=== PATIENT | female | born 1955 | race Caucasian/White ===

== ENCOUNTER → 2016-03-10 | Outpatient (CLI) | payer OTHER ==
[2016-02-18 14:00] VITALS: BP 101/46
[~2016-03-10] MED LIST: AMLO1CAP PO; ASPI-482 PO; ASPI1TAB30 PO; ASPI1TAB58 PO; ATOR40TA PO; CLOP75TA PO; LORA-794 PO; OMEG-32 PO; PRAS10TA4 PO; RANI150C PO
--- NOTE | 2016-03-10 10:33 | RAD ---
APPROVED REPORT Patient Location: OUT-PATIENT Indications PAD VELOCITY AND DOPPLER WAVEFORM ANALYSIS RIGHT cm/secWaveformSeverity LEFT c m/secWaveformSeverity Ext Iliac Art. 89.0MonophasicExt Iliac Art. 214.0Biphasic pCFA 81.0MonophasicpCFA 147.0Biphasic dCFA 65.0MonophasicdCFA 135.0Biphasic Prof Fem Art. 42.0MonophasicProf Fem Art. 167.0Biphasic Fem Art Prox. 96.0MonophasicFem Art Prox. 145.0Biphasic Fem Art Mid. 77.0MonophasicFem Art Mid. 150.0Biphasic Fem Art Dist. 89.0MonophasicFem Art Dist. 84.0Biphasic Pop Art(AK) 43.0MonophasicPop Art(AK) 88.0Biphasic Pop Art(BK) 52.0MonophasicPop Art(BK) 98.0Biphasic JEWEL LATHE OPERATOR Prox. 32.0MonophasicPTA Prox. 91.0Biphasic JEWEL LATHE OPERATOR Dist. 30.0MonophasicPTA Dist. 75.0Biphasic Per Art Prox. Per Art Prox. 77.0Biphasic Per Art Mid. 35.0MonophasicPer Art Mid. KYARA Prox. 26.0MonophasicATA Prox. 83.0Triphasic Findings Grayscale images of the bilateral lower extremity arterial vessels revealed mild to moderate diffuse plaque and a patent left SFA stent. On the right the velocity profiles are consistent with monophasic waveforms suggestive of distal smal l vessel diffuse disease. No significant velocity acceleration or deceleration is noted from the com mon femoral artery to the ankle vessels. Overall, no high-grade focal stenosis identified. On the left there are increased velocities in the left external iliac artery but no clear high grade stenosis is identified. Velocity waveforms are mostly biphasic in the left leg arterial system exten ding to the ankle. A patent left SFA stent is noted without any evidence of stenosis. Critical Notification Critical Value: No <Conclusion> 1. No significant high-grade focal stenosis identified in the bilateral lower extremity arterial vess els. Incidental note is made of accelerated velocities in the external iliac artery without any high -grade stenosis. 2. Patent left SFA stent.
== END | disposition home or self-care (01) ==
LOC: US 07:39
PROVIDERS: ATTEND Internal Medicine Cardiovascular Disease
DX: I65.23 Occlusion and stenosis of bilateral carotid arteries (principal)
CPT/HCPCS: 93925

== ENCOUNTER → 2016-06-27 | Outpatient (CLI) | payer OTHER ==
[2016-02-18 14:00] VITALS: BP 101/46
[~2016-06-27] MED LIST changes: -PRAS10TA4 PO; +PRAS10TA9 PO; +REGADENOSON 0.4 MG/5 ML DISP.SYRIN. IV ONE
--- NOTE | 2016-06-27 13:55 | RAD ---
APPROVED REPORT Test Type: Pharmacological Stress Nurse/Tech: Viola Shaikh R.N. Test Indications: peripheral vascular disease Cardiac History: Hypertension Medications: See Electronic Medical Record Medical History: See Electronic Medical Record Resting ECG: Sinus jamil Resting Heart Rate: 58 bpm Resting Blood Pressure: 128/40mmHg Pretest Chest Pain: No chest pain Nurse/Tech Notes S1S2, lungs sound clear Consent: The procedure was explained to the patient in lay terms. Informed consent was witnessed. Po eout was entered into [employer]. History and Stress Test performed by Viola Shaikh R.N. Pharm. Details Pharmacologic stress testing was performed using 0.4mg per 5ml of regadenoson given intravenously ove r 7-10 seconds. Stress Symptoms No chest pain or symptoms. POST EXERCISE Reason for Termination: Infusion complete Max HR: 114 bpm Max Blood Pressure: 132/72mmHg Blood Pressure response to exercise: Normal blood pressure response during stress. Chest Pain: No. Arrhythmia: No. ST Change: No. INTERPRETATION Stress EKG Conclusion: No evidence of stress induced EKG changes. Imaging Protocol IMAGE PROTOCOL: Rest Tc-99m/stress Tc-99m 1 day Rest: Stress: Viability: Radiopharm.Tc99m [id number] Sestamibi Dose12.3mCi 33.2mCi Duration 15min. 10min. Img Date 06/27/2016 06/27/2016 Inj-Img Vtfk87vxh. 60min. Rest Admin Site:IV - Right AntecubitalAdministrator:BRANDON Meraz Stress Admin Site: IV - Right AntecubitalAdministrator: BRANDON Meraz STRESS DATA End Diast. Vol.55.0mlAv. Heart Rate63.0bpm End Syst. Vol.3.0mlCO Index BSA0.0L/min Myocardial Mttf162.0gEject. Vzpcvgkq83.0% Stress Rates Pk. Fill Rate2.35EDV/secLVtime Pk. Fill 161.84msec Pk. Empty Rate3.97ESV/secLVtime Pk. Ovigo075.64msec 03/04 Pk. Fill1.39EDV/sec Stress Scores Regional WT0.00Summed WT0.00 Regional WM0.00Summed WM0.00 The rest and stress images show normal perfusion, normal contraction and thickening. LV Perf. Quant 17 Seg. SSS0.00 17 Seg. SRS0.00 17 Seg. SDS0.00 Stress Defect Extent (% LAD)0.00Rest Defect Extent (% LAD)0.00Rev. Defect Extent (% LAD)0.00 Stress Defect Extent (% LCX) 0.00Rest Defect Extent (% LCX)0.00Rev. Defect Extent (% LCX)0.00 Stress Defect Extent (% RCA)0.00Rest Defect Extent (% RCA)0.00Rev. Defect Extent (% RCA)0.00 Stress Defect Extent (% KILEY)0.00Rest Defect Extent (% KILEY)0.00Rev. Defect Extent (% KILEY)0.00 Other Information Quality:Good Risk Assessment: Low Risk Conclusion 1. No evidence of stress induced EKG changes. 2. Normal myocardial perfusion at stress/rest. 3. Low risk study. EF > 70%
--- NOTE | 2016-06-27 18:23 | CARD ---
APPROVED REPORT EXAM: Two-dimensional and M-mode echocardiogram with Doppler and color Doppler. Other Information Quality : Good Rhythm : NSR INDICATION Hypertension/HCVD 2D DIMENSIONS RVDd2.3 (2.9-3.5cm)Left Atrium(2D)3.5 (1.6-4.0cm) IVSd1.1 (0.7-1.1cm)Aortic Root(2D)2.6 (2.0-3.7cm) LVDd3.8 (3.9-5.9cm)LVOT Diameter2.0 (1.8-2.4cm) PWd1.1 (0.7-1.1cm)LVDs2.7 (2.5-4.0cm) FS (%) 28.7 %SV35.0 ml LVEF(%)56.0 (>50%) Aortic Valve AoV Peak Joni.162.2cm/sAoV VTI35.4cm AO Peak GR.10.5mmHgLVOT Peak Joni.144.0cm/s AO Mean GR.5mmHgAVA (VMAX)2.76cm2 YADY (VTI)2.80cm2 Mitral Valve MV E Xzntjcqe94.4cm/sMV DECEL AJGO110in MV A Vszeuigc997.9cm/sE/A Ratio0.6 Tricuspid Valve TR P. Ozndkbnl984my/sRAP ANVAMWCL2lvOq TR Peak Gr.33pxCaZVMA10lpZl Pulmonary Vein S1 Elopdsmq45.4cm/sD2 Yprfopbu70.4cm/s PVa hzowkggj51gted LEFT VENTRICLE The left ventricle is normal size. There is normal left ventricular wall thickness. The left ventricu lar systolic function is normal and the ejection fraction is within normal range. The Ejection Fracti on is 55-60%. There is normal LV segmental wall motion. Transmitral Doppler flow pattern is Grade I-a bnormal relaxation pattern. RIGHT VENTRICLE The right ventricle is normal size. The right ventricular systolic function is normal. ATRIA The left atrium size is normal. The right atrium size is normal. The interatrial septum is intact wit h no evidence for an atrial septal defect or patent foramen ovale as noted on 2-D or Doppler imaging. AORTIC VALVE The aortic valve is calcified but opens well. Doppler and Color Flow revealed no significant aortic r egurgitation. There is no significant aortic valvular stenosis. MITRAL VALVE The mitral valve is calcified but opens well. There is no evidence of mitral valve prolapse. There is no mitral valve stenosis. Doppler and Color Flow revealed no mitral valve regurgitation noted. TRICUSPID VALVE The tricuspid valve is normal in structure and function. Doppler and Color Flow revealed trace tricus pid regurgitation. The PA pressure was estimated at 29 mmHg. PULMONIC VALVE Doppler and Color Flow revealed no pulmonic valvular regurgitation. There is no pulmonic valvular julio nosis. GREAT VESSELS The aortic root is normal in size. The ascending aorta is normal in size. The IVC is normal in size a nd collapses >50% with inspiration. PERICARDIAL EFFUSION There is no evidence of significant pericardial effusion. Critical Notification Critical Value: No <Conclusion> The left ventricular systolic function is normal and the ejection fraction is within normal range. Th e Ejection Fraction is 55-60%. There is normal LV segmental wall motion.
== END | disposition home or self-care (01) ==
LOC: NM 06:47
PROVIDERS: ATTEND Internal Medicine Cardiovascular Disease
DX: I10 Essential (primary) hypertension (principal); I73.9 Peripheral vascular disease, unspecified; I07.1 Rheumatic tricuspid insufficiency
CPT/HCPCS: 78452; 93017; 93306; 96374; 96375; 96376; A9500; J2785

== ENCOUNTER → 2016-07-17 | Outpatient (CLI) | payer OTHER ==
[2016-02-18 14:00] VITALS: BP 101/46
[~2016-07-17] MED LIST changes: -REGADENOSON 0.4 MG/5 ML DISP.SYRIN. IV ONE
--- NOTE | 2016-07-17 13:27 | RAD ---
Examination: Ultrasound left lower extremity venous duplex History: History of left lateral calf pain Comparison: None available Technique: Grayscale, color Doppler 2-D, spectral waveform analysis of the left lower extremity venous system were performed Findings: The visualized common femoral vein, superficial femoral vein, popliteal vein demonstrate normal compression augmentation of flow. The visualized deep calf veins are patent. There is some echogenicity probable thrombus identified in the superficial vein of the left calf likely superficial thrombophlebitis. Impression 1. No evidence of deep venous thrombosis. 2. Probable superficial thrombophlebitis left lateral calf vein.
== END | disposition home or self-care (01) ==
LOC: US 11:57
PROVIDERS: ATTEND Family Medicine
DX: M79.605 Pain in left leg (principal)
CPT/HCPCS: 93971

== ENCOUNTER → 2016-09-11 | Outpatient (CLI) | payer OTHER ==
[2016-02-18 14:00] VITALS: BP 101/46
--- NOTE | 2016-09-11 16:57 | RAD ---
MRI of the lumbar spine without contrast 09/11/2016 CLINICAL HISTORY: Low back pain with difficulty walking for one year. TECHNIQUE: Unenhanced T1-weighted and T2-weighted sagittal and axial and inversion recovery sagittal images of the lumbar spine were obtained. FINDINGS: Minimal S-shaped curvature of the thoracolumbar spine is seen. Degenerative signal changes are seen involving all of the disks of the lumbar spine. Degenerative signal changes are seen within the marrow surrounding these discs. The conus medullaris is within normal limits in morphology, position, and signal characteristics. The L1-2 disc space is within normal limits. At the L2-3 disc space there is a mild generalized disc bulge. Superimposed on this disc bulge is a right paracentral/lateral focal disc protrusion. This measures 5 mm in AP diameter. Degenerative changes are seen involving the facet joints bilaterally. There is mild ligamentum flavum hypertrophy bilaterally. These findings when combined do not result in significant central spinal canal or neural foraminal stenosis. At the L3-4 disc space there is a mild generalized disc bulge. Degenerative changes are seen involving the facet joints bilaterally. There is mild ligamentum flavum hypertrophy bilaterally. These findings do not result in significant central spinal canal or neural foraminal stenosis. At the L4-5 and L5-S1 disc spaces there are minimal generalized disc bulges. Degenerative changes are seen involving the facet joints bilaterally. These findings do not result in significant central spinal canal or neural foraminal stenosis. IMPRESSION: The changes of degenerative disc disease are seen involving the lumbar spine. These findings do not result in significant central spinal canal or neural foraminal stenosis at any level. Electronically signed by: Ernesto French MD (09/11/2016 4:54 PM) [facility]
== END | disposition home or self-care (01) ==
LOC: MRI 14:34
PROVIDERS: ATTEND Family Medicine
DX: M51.36 Other intervertebral disc degeneration, lumbar region (principal)
CPT/HCPCS: 72148

== ENCOUNTER → 2016-10-16 | Outpatient (CLI) | payer OTHER ==
[2016-02-18 14:00] VITALS: BP 101/46
--- NOTE | 2016-10-16 16:13 | RAD ---
Cervical spine radiograph 10/16/2016 at 1425 hours Right shoulder radiograph Indication: Right shoulder pain when turning neck side to side. Comparison: Cervical spine MR 08/22/2015 Technique: AP, lateral, odontoid views and bilateral oblique views of the cervical spine are provided. 3 views of the right shoulder are provided. Cervical spine: Cervical spine is visualized from the craniocervical junction through the cervicothoracic junction. There is reversal of the normal cervical lordosis focal kyphosis at C4-C5. There is minimal retrolisthesis of C5 on C6. There is disc space narrowing with endplate sclerosis at C4-C5 and C5-C6 and C6-C7. Posterior disc osteophyte complex noted at C4-C5 and C5-C6 resulting in at least mild narrowing of the spinal canal. The C1 lateral masses articulate properly with the C2 vertebral body. There is mild left C4-C5 osseous neural foraminal stenosis. There is mild multilevel uncovertebral joint arthropathy. Right shoulder: There is no acute fracture or dislocation. Mild osteoarthrosis of the acromioclavicular joint. No significant soft tissue abnormality. Atherosclerotic ulceration of the thoracic aorta noted. Impression: 1. Mild degenerative changes of the cervical spine with likely degenerative retrolisthesis of C5 on C6, stable dating back to 08/22/2015. No acute fracture is identified. 2. No acute fracture or dislocation involving the right glenohumeral and acromioclavicular joints.
== END | disposition home or self-care (01) ==
LOC: RAD 14:09
PROVIDERS: ATTEND Family Medicine
DX: M47.22 Other spondylosis with radiculopathy, cervical region (principal); M25.511 Pain in right shoulder
CPT/HCPCS: 72050; 73030

== ENCOUNTER → 2016-11-21 | Outpatient (CLI) | payer OTHER ==
[2016-02-18 14:00] VITALS: BP 101/46
[~2016-11-21] MED LIST changes: -ASPI1TAB30 PO; +ASPI1TAB31 PO
--- NOTE | 2016-11-21 12:56 | RAD ---
Indication low back pain. AP oblique and lateral views of the lumbar spine were obtained as well as a coned view targeted to the lumbosacral junction. There is probable bony demineralization. Significant degenerative changes are not seen. Vertebral height alignment and disc spaces are unremarkable. No acute finding is seen. Vascular stent in the pelvis is noted. IMPRESSION: Suspect bony demineralization. No acute or significant finding seen involving the lumbar spine
== END | disposition home or self-care (01) ==
LOC: RAD 12:02
PROVIDERS: ATTEND Family Medicine
DX: M54.40 Lumbago with sciatica, unspecified side (principal)
CPT/HCPCS: 72110

== ENCOUNTER → 2016-12-05 | Outpatient (CLI) | payer OTHER ==
[2016-02-18 14:00] VITALS: BP 101/46
[~2016-12-05] MED LIST changes: +ROPI0.5T PO; +TIZA2CAP PO
--- NOTE | 2016-12-05 12:56 | PAIN ---
DATE OF SERVICE: 12/05/2016 DIAGNOSES: 1. Lumbar radiculopathy with lumbar degenerative disk disease. 2. Cervical radiculopathy with cervical degenerative disk disease. HISTORY OF PRESENT ILLNESS: The patient is a 61-year-old female who returns for followup status post cervical epidural steroid injections x 2 and lumbar epidural steroid injection x 1, last seen 11/09/2015. The patient reports she did very well with this with about a 75% improvement overall, but the pain is returning now in the low back and bilateral lower extremities, right greater than left with radiating pains in the low back into the posterior gluteus, posterior thighs, posterior calves, again worse on the right side than the left, but present bilaterally. The patient reports it is worse with standing, walking, changing positions, better with sitting down or lying down but awakens her from sleep occasionally, not every night. She sleeps about 5 hours at a time, she needs to reposition and get back to sleep if this does awaken her. The patient also has some restless legs syndrome and has been taking some medication for that, that also wakes her up at night. The patient reports the pain is an 8 on a scale of 10 at its worst, a 5 at its average and about a 4 at its least. The patient reports it is burning, cramping, stabbing, shooting, sharp and aching pain that can be on and off, but is becoming more present and more consistent with time. The patient reports no new motor or sensory deficits, no new bowel or bladder incontinence or other complaints, but still significant pain radiating to the right leg greater than left as noted and worse with activity. PAST MEDICAL HISTORY: Significant for cigarette smoking, arthritis, headaches, hearing loss, hypertension. PREVIOUS SURGERIES: Include appendectomy and hysterectomy. CURRENT MEDICATIONS: Include amlodipine, Zantac and complete list is updated on the patient's chart. ALLERGIES: The patient has no known drug allergies. FAMILY HISTORY: Significant for cancers. SOCIAL HISTORY: The patient still smokes 1 pack of cigarettes a day, has for about 46 years. Drinks 2 alcoholic beverages a day as well. 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 REVIEW OF SYSTEMS: The patient's review of systems is positive for those items mentioned in history of present illness. All systems reviewed and otherwise negative. It is complete, full and well documented on the patient's chart. PHYSICAL EXAMINATION: VITAL SIGNS: Today, the patient's blood pressure is 126/59, pulse 65, respirations 16, temperature 98.3 degrees Fahrenheit, height is 5 feet 4 inches, weight is 125 pounds. GENERAL: The patient is awake, alert, oriented, appropriate, very pleasant demeanor. HEENT: Head shows normocephalic, atraumatic. Extraocular movements are intact, symmetrical. Oral cavity, mucous membranes are moist and pink. Dentition is intact. NECK: Shows anterior throat supple without palpable lymphadenopathy noted. Swallow reflex is symmetrical. CHEST: Shows normal on inspection. Breath sounds are clear bilaterally. HEART: Shows S1 and S2 clear. No murmurs auscultated. ABDOMEN: Soft, nontender, nondistended. No palpable organomegaly is noted. No rebound or guarding demonstrated. BACK: Shows spine grossly midline, slight flattening of lumbar lordotic curvature and cervical lordotic curvature. Paraspinous musculature in the cervical distribution is mildly tender but diffusely bilaterally in the superior, medial and lateral trapezius as well as the inferior, posterior cervical paraspinous musculature. Full rotational motion is demonstrated the right and left as well as extension and flexion of the cervical spine without difficulty. BACK: Low back shows symmetrical on inspection with musculature with palpation shows some mild tenderness to moderate tenderness in the lower lumbar distribution, but only diffusely bilaterally in the paraspinous muscles. No tenderness over the spinous processes, sacrum or sacroiliac regions. The patient has good rotational motion of lumbar spine, both laterally as well as extension and flexion without difficulty. LOWER EXTREMITIES: Show deep tendon reflexes at 1+ patellar and tendo calcaneus tendons. Motor exam is strong, however, with dorsiflexion, extension, quadriceps and hamstring flexion rated at 5/5 and equal. Peripheral pulses are 1+ posterior tibial and dorsalis pedis pulses. Straight leg raise noted to be positive bilaterally about 40-45 degrees, decreased on the left with knee flexion, but not decreased on the right with knee flexion. Gaenslen's and Oliver's maneuvers are negative bilaterally. Options were discussed with the patient and the patient's old chart was reviewed as her current medication regimen updated. Current review of systems is updated today as well. We will preauthorize the patient for a lumbar epidural steroid injection as she has done very well with these in the past with returning pains very similar to that of about 1 year ago with radicular pain at the L4 and L5 levels in the dermatomes of the lower extremity, again right greater than left. The patient was encouraged to maintain her stretching and strengthening exercises as she is doing these daily, also trying to walk as best she can. The patient continues to work and is on her feet most of her day. We discussed possible difference in supportive shoes as well as cushioned of mats that she may have available at work as well and she will look into this. The patient will follow up as scheduled and we will plan on lumbar epidural steroid injection at that time. LENA WILLIS MD DR: ESTHELA/geeta JOB#: [id number] / [id number]
== END | disposition home or self-care (01) ==
LOC: PNCL 10:06
PROVIDERS: ATTEND Anesthesiology
DX: M51.16 Intervertebral disc disorders with radiculopathy, lumbar region (principal); M50.10 Cervical disc disorder with radiculopathy, unspecified cervical region; G25.81 Restless legs syndrome; I10 Essential (primary) hypertension; F17.210 Nicotine dependence, cigarettes, uncomplicated
CPT/HCPCS: 99212

== ENCOUNTER → 2016-12-30 | Outpatient (CLI) | payer OTHER ==
[2016-02-18 14:00] VITALS: BP 101/46
[~2016-12-30] MED LIST changes: +IOHEXOL 180 MG/ML 10 ML VIAL. ONE; +methylPREDNISolone ACETATE 40 MG/ML VIAL. ONE; +methylPREDNISolone ACETATE 80 MG/ML VIAL. ONE
--- NOTE | 2016-12-30 12:19 | PAIN ---
DATE OF SERVICE: 12/30/2016 DIAGNOSES: 1. Lumbar radiculopathy with lumbar degenerative disk disease. 2. Cervical radiculopathy with cervical degenerative disk disease. HISTORY OF PRESENT ILLNESS: The patient is a 61-year-old female who returns for followup status post evaluation and preauthorization for lumbar epidural steroid injection. Also, the patient has been holding her Effient now for 7 days and returns reporting a significant pain again in the low back, bilateral lower extremities, right slightly greater than left, but present in both the legs. The patient reports a 5 on a scale of 10 at its worst, 4 on average, 3 on a scale of 10 at its least and 3 today. The patient reports it is tingling, burning, cramping, stabbing, shooting, dull, sharp, aching and becoming more constant pain in the back and legs. The patient reports no new motor or sensory deficits, no new bowel or bladder incontinence or other complaints. PHYSICAL EXAMINATION: VITAL SIGNS: The patient's blood pressure 117/60, pulse 72, respirations 18, temperature 97.8 degrees Fahrenheit, height is 5 feet 4 inches, weight is 130 pounds. GENERAL: The patient is awake, alert, oriented, appropriate, very pleasant demeanor. HEENT: Head shows normocephalic, atraumatic. Extraocular movements are intact and symmetrical. Oral cavity, mucous membranes are moist and pink. Dentition is intact. NECK: Shows anterior throat supple without palpable lymphadenopathy noted. Swallow reflex is symmetrical. CHEST: Shows normal on inspection. Breath sounds are clear to auscultation bilaterally. HEART: Shows S1 and S2 clear. ABDOMEN: Soft, nontender, nondistended. No palpable organomegaly. There is no rebound or guarding demonstrated. BACK: Shows spine grossly midline. Lumbar paraspinous musculature shows some moderate tenderness to palpation, but is symmetrical and normal lumbar lordotic curvature with palpation shows some moderate tenderness diffusely bilaterally in the lower lumbar distribution, but without radiation. No tenderness over the sacrum or sacroiliac regions. The patient shows good rotational motion of the lumbar spine, both laterally as well as extension and flexion without difficulty. LOWER EXTREMITIES: Showed deep tendon reflexes 1+ in the patellar and tendo calcaneus tendons. Motor exam is strong with 5/5 dorsiflexion, extension, quadriceps, hamstrings bilaterally. Peripheral pulses are 1+ posterior tibial. No peripheral edema is noted. Options were discussed with the patient and the patient's old chart was reviewed as her current medication regimen updated. Current review of systems updated today as well. We will proceed with a first in the series lumbar epidural steroid injection in translaminar approach. Risks were again discussed including, but not limited to bleeding, infection, possibility of epidural hematoma, subsequent neurologic compromise, dural punctures, headaches, spinal cord and/or nerve damage, side effects of steroid medication and poor results regarding pain control. The patient understands and wishes to proceed. The patient will return to clinic in approximately 2 weeks for followup, was counseled on return appointment, activity level and side effects to be aware of. DIAGNOSIS: Lumbar radiculopathy with lumbar degenerative disk disease. PROCEDURE: Lumbar epidural steroid injection in translaminar approach L4-L5 level using C-arm fluoroscopic guidance using sterile prep and drape using local anesthetic. MEDICATIONS INJECTED: A total of 120 mg Depo-Medrol plus 10 mL preservative-free normal saline and 2 mL of Isovue for contrast. CONDITION ON DISCHARGE: Stable. The patient tolerated the procedure well, had no complications. LENA WILLIS MD DR: ESTHELA/geeta JOB#: [id number] / [id number]
== END | disposition home or self-care (01) ==
LOC: PNCL 09:34
PROVIDERS: ATTEND Anesthesiology
DX: M51.16 Intervertebral disc disorders with radiculopathy, lumbar region (principal); M50.10 Cervical disc disorder with radiculopathy, unspecified cervical region; G25.81 Restless legs syndrome; I10 Essential (primary) hypertension; F17.210 Nicotine dependence, cigarettes, uncomplicated
CPT/HCPCS: 62323; J1030; J1040

== ENCOUNTER 2017-08-02 21:39 | Inpatient (IN) | payer OTHER ==
[2017-08-02 22:09] LABS: BASO # 0.2 x10^3/uL (0.0-0.2); BASO % 1 % (0-3); EOS # 0.2 x10^3/uL (0.0-0.7); EOS % 1 % (0-3); HEMATOCRIT 36.3 % (36.0-47.0); HEMOGLOBIN 11.6 g/dL (12.0-15.5); LYMPH # 3.3 x10^3/uL (1.0-4.8); LYMPH % 12 % (24-48); MEAN CORPUSCULAR HEMOGLOBIN 29 pg (25-35); MEAN CORPUSCULAR HGB CONC 32 g/dL (31-37); MEAN CORPUSCULAR VOLUME 90 fL (79-100); MONO # 0.2 x10^3/uL (0.0-1.1); MONO % 1 % (0-9); NEUT # 23.4 x10^3uL (1.8-7.7); NEUT % 86 % (31-73); PLATELET COUNT 481 x10^3/uL (140-400); RED BLOOD COUNT 4.02 x10^6/uL (3.50-5.40); WHITE BLOOD COUNT 27.3 x10^3/uL (4.0-11.0)
[2017-08-02] MEDS: IV NORMAL SALINE 1000ML BAG 1,000 ML IV (22:10)
[2017-08-02 22:15] LABS: ADD MAN DIFF? YES
[2017-08-02 22:18] LABS: INR 1.2 (0.8-1.1); PROTHROMBIN TIME PATIENT 14.7 SEC (11.7-14.0)
[2017-08-02 22:20] LABS: ANION GAP 24 (6-14); BLOOD UREA NITROGEN 53 mg/dL (7-20); BUN/CREATININE RATIO 31 (6-20); CALCIUM 8.6 mg/dL (8.5-10.1); CARBON DIOXIDE 15 mmol/L (21-32); CHLORIDE 104 mmol/L (98-107); CREATININE 1.7 mg/dL (0.6-1.0); GFR 30.4; GLUCOSE 247 mg/dL (70-99); POTASSIUM 3.5 mmol/L (3.5-5.1); SODIUM 143 mmol/L (136-145)
[2017-08-02 22:26] LABS: ALBUMIN 3.7 g/dL (3.4-5.0); ALBUMIN/GLOBULIN RATIO 1.2 (1.0-1.7); ALK PHOS 123 U/L (46-116); ALT (SGPT) 27 U/L (14-59); AST (SGOT) 28 U/L (15-37); LIPASE 475 U/L (73-393); TOTAL BILIRUBIN 0.5 mg/dL (0.2-1.0); TOTAL PROTEIN 6.9 g/dL (6.4-8.2)
[2017-08-02 22:29] LABS: % BANDS 9 % (0-9); % LYMPHS 10 % (24-48); % MONOS 1 % (0-10); % SEGS 80 % (35-66)
[2017-08-02 22:32] LABS: PLT ESTIMATE INCREASED (ADEQUATE); TOXIC GRANULATION SLIGHT
[2017-08-02] MEDS: ONDANSETRON PF 4 MG/2 ML VIAL. IV (22:40)
[2017-08-02] MEDS: PANTOPRAZOLE IV PUSH 40 MG VIAL. IVP (22:40)
[2017-08-02] MEDS: IV NORMAL SALINE 500ML BAG 500 ML IV (23:20)
[2017-08-02 23:33] LABS: IMMEDIATE SPIN CROSSMATCH 1
[2017-08-03] MEDS: IV NORMAL SALINE 1000ML BAG 1,000 ML IV ×4 (01:01→18:30)
[2017-08-03] MEDS: ONDANSETRON PF 4 MG/2 ML VIAL. IV (03:47)
[2017-08-03 07:36] LABS: ADD MAN DIFF? NO
[2017-08-03 07:48] LABS: BASO # 0.1 x10^3/uL (0.0-0.2); BASO % 0 % (0-3); EOS % 0 % (0-3); HEMATOCRIT 32.5 % (36.0-47.0); LYMPH # 1.7 x10^3/uL (1.0-4.8); LYMPH % 6 % (24-48); MEAN CORPUSCULAR HEMOGLOBIN 29 pg (25-35); MEAN CORPUSCULAR HGB CONC 34 g/dL (31-37); MEAN CORPUSCULAR VOLUME 87 fL (79-100); MONO % 3 % (0-9); NEUT # 27.3 x10^3uL (1.8-7.7); NEUT % 91 % (31-73); PLATELET COUNT 305 x10^3/uL (140-400); RED BLOOD COUNT 3.76 x10^6/uL (3.50-5.40); RED CELL DISTRIBUTION WIDTH 15.7 % (11.5-14.5); WHITE BLOOD COUNT 30.1 x10^3/uL (4.0-11.0)
[2017-08-03] MEDS ORDERED: FAMOTIDINE 20 MG/2 ML VIAL (08:04)
[2017-08-03] MEDS ORDERED: METOCLOPRAMIDE HCL 10 MG/2 ML VIAL. (08:04)
[2017-08-03] MEDS: EPINEPHrine SYRINGE 1 MG/10 ML SYRINGE IV (08:25)
[2017-08-03] MEDS: METOCLOPRAMIDE HCL 10 MG/2 ML VIAL. IV ×4 (09:00→23:36)
[2017-08-03] MEDS ORDERED: EPINEPHrine SYRINGE 1 MG/10 ML SYRINGE (09:07)
[2017-08-03] MEDS: PANTOPRAZOLE IV PUSH 40 MG VIAL. IVP ×2 (11:16→20:58)
[2017-08-03] MEDS ORDERED: PHENYLEPHRINE in 0.9% NACL PF 1 MG/10 ML SYRINGE. IV (14:00)
[2017-08-03] MEDS ORDERED: SUCCINYLCHOLINE 200 MG/10 ML VIAL. (14:00)
[2017-08-03] MEDS ORDERED: PROPOFOL 10 MG/ML (20ML) VIAL. IV (14:00)
[2017-08-03] MEDS ORDERED: LIDOCAINE 2% 100 MG/5 ML SYRINGE. (14:00)
[2017-08-03] MEDS ORDERED: DEXAMETHASONE SOD PHOS 20 MG/5 ML VIAL. (14:00)
[2017-08-03 14:23] LABS: MRSA BY PCR Negative (Negative)
[2017-08-04 05:23] LABS: HEMATOCRIT 23.4 % (36.0-47.0); HEMOGLOBIN 7.9 g/dL (12.0-15.5); MEAN CORPUSCULAR HEMOGLOBIN 30 pg (25-35); MEAN CORPUSCULAR HGB CONC 34 g/dL (31-37); MEAN CORPUSCULAR VOLUME 88 fL (79-100); PLATELET COUNT 236 x10^3/uL (140-400); RED BLOOD COUNT 2.66 x10^6/uL (3.50-5.40); RED CELL DISTRIBUTION WIDTH 16.7 % (11.5-14.5); WHITE BLOOD COUNT 19.9 x10^3/uL (4.0-11.0)
[2017-08-04 05:37] LABS: ANION GAP 14 (6-14); BLOOD UREA NITROGEN 21 mg/dL (7-20); CALCIUM 7.1 mg/dL (8.5-10.1); CARBON DIOXIDE 17 mmol/L (21-32); CHLORIDE 114 mmol/L (98-107); CREATININE 0.8 mg/dL (0.6-1.0); GFR 72.4; GLUCOSE 124 mg/dL (70-99); POTASSIUM 4.1 mmol/L (3.5-5.1); SODIUM 145 mmol/L (136-145)
[2017-08-04] MEDS: METOCLOPRAMIDE HCL 10 MG/2 ML VIAL. IV (05:54)
[2017-08-04] MEDS: PANTOPRAZOLE IV PUSH 40 MG VIAL. IVP ×2 (09:30→20:50)
[2017-08-04] MEDS: IV NORMAL SALINE 1000ML BAG 1,000 ML IV (18:20)
[2017-08-04] MEDS: ONDANSETRON PF 4 MG/2 ML VIAL. IV (19:46)
[2017-08-05] MEDS: IV NORMAL SALINE 1000ML BAG 1,000 ML IV (00:48)
[2017-08-05 04:44] LABS: MEAN CORPUSCULAR HEMOGLOBIN 29 pg (25-35); MEAN CORPUSCULAR HGB CONC 33 g/dL (31-37); MEAN CORPUSCULAR VOLUME 87 fL (79-100); PLATELET COUNT 202 x10^3/uL (140-400); RED BLOOD COUNT 2.23 x10^6/uL (3.50-5.40); RED CELL DISTRIBUTION WIDTH 16.2 % (11.5-14.5); WHITE BLOOD COUNT 14.1 x10^3/uL (4.0-11.0)
[2017-08-05 05:08] LABS: HEMATOCRIT 19.4 % (36.0-47.0); HEMOGLOBIN 6.4 g/dL (12.0-15.5)
[2017-08-05 05:16] LABS: ANION GAP 9 (6-14); BLOOD UREA NITROGEN 5 mg/dL (7-20); CALCIUM 7.1 mg/dL (8.5-10.1); CARBON DIOXIDE 23 mmol/L (21-32); CHLORIDE 111 mmol/L (98-107); CREATININE 0.6 mg/dL (0.6-1.0); GLUCOSE 86 mg/dL (70-99); POTASSIUM 3.4 mmol/L (3.5-5.1); SODIUM 143 mmol/L (136-145)
[2017-08-05] MEDS: IV RINGERS,LACTATED 1000ML 1,000 ML IV (08:53)
[2017-08-05] MEDS ORDERED: PROCHLORPERAZINE 10 MG/2 ML VIAL. IV (09:00)
[2017-08-05] MEDS ORDERED: LIDOCAINE 1% PF 2 ML VIAL. ID (09:00)
[2017-08-05] MEDS ORDERED: fentaNYL PF VIAL 100 MCG/2 ML VIAL IV ×2 (09:00)
[2017-08-05] MEDS ORDERED: MORPHINE SULFATE 2 MG/ML DISP.SYRIN. IV (09:00)
[2017-08-05] MEDS ORDERED: ONDANSETRON PF 4 MG/2 ML VIAL. IV (09:00)
[2017-08-05] MEDS: PANTOPRAZOLE IV PUSH 40 MG VIAL. IVP (09:50)
[2017-08-05 10:00] LABS: IMMEDIATE SPIN CROSSMATCH 1 3
[2017-08-05] MEDS ORDERED: IV NORMAL SALINE 1000ML BAG 1,000 ML IV (11:15)
[2017-08-05] MEDS ORDERED: PROPOFOL 20 ML IV (12:33)
[2017-08-05] MEDS ORDERED: POTASSIUM CHLORIDE 20MEQ 50 ML IV (13:00)
[2017-08-05] MEDS: FUROSEMIDE 20 MG/2 ML VIAL. IVP (13:21)
[2017-08-05 14:08] LABS: HEMATOCRIT 27.1 % (36.0-47.0); HEMOGLOBIN 9.3 g/dL (12.0-15.5); MEAN CORPUSCULAR HEMOGLOBIN 30 pg (25-35); MEAN CORPUSCULAR HGB CONC 34 g/dL (31-37); MEAN CORPUSCULAR VOLUME 87 fL (79-100); PLATELET COUNT 238 x10^3/uL (140-400); RED BLOOD COUNT 3.12 x10^6/uL (3.50-5.40); RED CELL DISTRIBUTION WIDTH 15.1 % (11.5-14.5); WHITE BLOOD COUNT 17.8 x10^3/uL (4.0-11.0)
[2017-08-05] MEDS: POTASSIUM CHLORIDE 20 MEQ TABLET.ER. PO (15:47)
[2017-08-05] MEDS: ACETAMINOPHEN 500 MG TABLET PO (15:47)
[2017-08-05] MEDS: PANTOPRAZOLE 40 MG TABLET.DR. PO (18:19)
[2017-08-05] MEDS: IV NORMAL SALINE 250ML 250 ML IV (19:58)
[2017-08-05] MEDS: LACTOBACILLUS RHAMNOSUS GG 1 CAPSULE. PO (22:36)
[2017-08-06 05:03] LABS: HEMATOCRIT 24.7 % (36.0-47.0); HEMOGLOBIN 8.6 g/dL (12.0-15.5); MEAN CORPUSCULAR HEMOGLOBIN 30 pg (25-35); MEAN CORPUSCULAR HGB CONC 35 g/dL (31-37); MEAN CORPUSCULAR VOLUME 87 fL (79-100); PLATELET COUNT 219 x10^3/uL (140-400); RED BLOOD COUNT 2.85 x10^6/uL (3.50-5.40); RED CELL DISTRIBUTION WIDTH 15.3 % (11.5-14.5); WHITE BLOOD COUNT 13.8 x10^3/uL (4.0-11.0)
[2017-08-06 05:13] LABS: ANION GAP 9 (6-14); BLOOD UREA NITROGEN 6 mg/dL (7-20); CALCIUM 7.2 mg/dL (8.5-10.1); CARBON DIOXIDE 24 mmol/L (21-32); CHLORIDE 105 mmol/L (98-107); CREATININE 0.6 mg/dL (0.6-1.0); GLUCOSE 83 mg/dL (70-99); POTASSIUM 3.2 mmol/L (3.5-5.1); SODIUM 138 mmol/L (136-145)
[2017-08-06] MEDS: PANTOPRAZOLE 40 MG TABLET.DR. PO ×2 (08:35→16:50)
[2017-08-06 08:49] LABS: BILIRUBIN,URINE NEGATIVE (NEG); CLARITY,URINE CLEAR; COLOR,URINE YELLOW; GLUCOSE,URINE NEGATIVE (NEG); NITRITE,URINE NEGATIVE (NEG); PH,URINE 6.5; PROTEIN,URINE NEGATIVE (NEG-TRACE)
[2017-08-06 08:55] LABS: SQUAMOUS EPITHELIAL CELL,UR FEW /LPF
[2017-08-06 08:56] LABS: BACTERIA,URINE MODERATE /HPF (0-FEW)
[2017-08-06] MEDS: POTASSIUM CHLORIDE 20 MEQ TABLET.ER. PO (08:58)
[2017-08-06] MEDS: LACTOBACILLUS RHAMNOSUS GG 1 CAPSULE. PO ×2 (08:58→22:15)
[2017-08-06] MEDS: ONDANSETRON PF 4 MG/2 ML VIAL. IV ×2 (10:11→19:43)
[2017-08-06] MEDS: ACETAMINOPHEN 500 MG TABLET PO (22:18)
[2017-08-07 05:50] LABS: HEMATOCRIT 24.9 % (36.0-47.0); HEMOGLOBIN 8.5 g/dL (12.0-15.5); MEAN CORPUSCULAR HEMOGLOBIN 29 pg (25-35); MEAN CORPUSCULAR HGB CONC 34 g/dL (31-37); MEAN CORPUSCULAR VOLUME 86 fL (79-100); PLATELET COUNT 283 x10^3/uL (140-400); RED CELL DISTRIBUTION WIDTH 15.3 % (11.5-14.5); WHITE BLOOD COUNT 13.4 x10^3/uL (4.0-11.0)
[2017-08-07] MEDS: PANTOPRAZOLE 40 MG TABLET.DR. PO ×2 (09:03→17:09)
[2017-08-07] MEDS: LACTOBACILLUS RHAMNOSUS GG 1 CAPSULE. PO ×2 (09:03→20:00)
[2017-08-07] MEDS ORDERED: POLYETHYLENE GLYCOL 3350 17 GM PACKET. PO (14:15)
[2017-08-07] MEDS: ACETAMINOPHEN 500 MG TABLET PO (20:01)
[2017-08-08] MEDS: ACETAMINOPHEN 500 MG TABLET PO ×2 (04:03→20:43)
[2017-08-08 05:12] LABS: HEMOGLOBIN 9.1 g/dL (12.0-15.5); MEAN CORPUSCULAR HEMOGLOBIN 29 pg (25-35); MEAN CORPUSCULAR HGB CONC 34 g/dL (31-37); MEAN CORPUSCULAR VOLUME 87 fL (79-100); PLATELET COUNT 335 x10^3/uL (140-400); RED CELL DISTRIBUTION WIDTH 15.5 % (11.5-14.5); WHITE BLOOD COUNT 11.5 x10^3/uL (4.0-11.0)
[2017-08-08 05:29] LABS: ANION GAP 9 (6-14); BLOOD UREA NITROGEN 8 mg/dL (7-20); CALCIUM 8.3 mg/dL (8.5-10.1); CARBON DIOXIDE 26 mmol/L (21-32); CHLORIDE 105 mmol/L (98-107); CREATININE 0.7 mg/dL (0.6-1.0); GFR 84.5; GLUCOSE 100 mg/dL (70-99); POTASSIUM 3.4 mmol/L (3.5-5.1); SODIUM 140 mmol/L (136-145)
[2017-08-08] MEDS: PANTOPRAZOLE 40 MG TABLET.DR. PO ×2 (06:34→17:26)
[2017-08-08] MEDS: LACTOBACILLUS RHAMNOSUS GG 1 CAPSULE. PO ×2 (08:16→20:43)
[2017-08-08] MEDS: POTASSIUM CHLORIDE 20 MEQ TABLET.ER. PO (15:27)
[2017-08-08] MEDS: ATORVASTATIN CALCIUM 40 MG TABLET. PO (20:43)
[2017-08-09 05:18] LABS: ADD MAN DIFF? NO
[2017-08-09 05:30] LABS: BASO # 0.1 x10^3/uL (0.0-0.2); BASO % 1 % (0-3); EOS # 0.4 x10^3/uL (0.0-0.7); EOS % 4 % (0-3); HEMATOCRIT 25.4 % (36.0-47.0); HEMOGLOBIN 8.7 g/dL (12.0-15.5); LYMPH # 2.5 x10^3/uL (1.0-4.8); LYMPH % 25 % (24-48); MEAN CORPUSCULAR HEMOGLOBIN 30 pg (25-35); MEAN CORPUSCULAR HGB CONC 34 g/dL (31-37); MEAN CORPUSCULAR VOLUME 87 fL (79-100); MONO # 0.9 x10^3/uL (0.0-1.1); MONO % 9 % (0-9); NEUT # 6.3 x10^3uL (1.8-7.7); NEUT % 62 % (31-73); PLATELET COUNT 389 x10^3/uL (140-400); RED BLOOD COUNT 2.92 x10^6/uL (3.50-5.40); RED CELL DISTRIBUTION WIDTH 15.4 % (11.5-14.5); WHITE BLOOD COUNT 10.2 x10^3/uL (4.0-11.0)
[2017-08-09 06:04] LABS: ALBUMIN 2.5 g/dL (3.4-5.0); ALBUMIN/GLOBULIN RATIO 0.8 (1.0-1.7); ALK PHOS 82 U/L (46-116); ALT (SGPT) 22 U/L (14-59); ANION GAP 8 (6-14); AST (SGOT) 19 U/L (15-37); BLOOD UREA NITROGEN 9 mg/dL (7-20); BUN/CREATININE RATIO 15 (6-20); CALCIUM 7.9 mg/dL (8.5-10.1); CARBON DIOXIDE 27 mmol/L (21-32); CHLORIDE 106 mmol/L (98-107); CREATININE 0.6 mg/dL (0.6-1.0); GLUCOSE 96 mg/dL (70-99); POTASSIUM 3.6 mmol/L (3.5-5.1); SODIUM 141 mmol/L (136-145); TOTAL BILIRUBIN 0.2 mg/dL (0.2-1.0); TOTAL PROTEIN 5.8 g/dL (6.4-8.2)
[2017-08-09] MEDS: PANTOPRAZOLE 40 MG TABLET.DR. PO ×2 (06:47→17:28)
[2017-08-09] MEDS: ACETAMINOPHEN 500 MG TABLET PO (06:48)
[2017-08-09] MEDS: LACTOBACILLUS RHAMNOSUS GG 1 CAPSULE. PO (08:36)
== END 2017-08-09 19:04 | disposition home health service (06) | DRG 368 ==
LOC: 2 SOUTH 08-06 15:44 → ER 21:39 → 1 WEST ICU 22:24
PROC: 0W3P8ZZ Control Bleeding in Gastrointestinal Tract, Via Natural or Artificial Opening Endoscopic (ICD-10-PCS; principal; 2017-08-03 08:00)
PROC: 3E0G8GC Introduction of Other Therapeutic Substance into Upper GI, Via Natural or Artificial Opening Endoscopic (ICD-10-PCS; 2017-08-03 08:00)
PROC: 0DJ08ZZ Inspection of Upper Intestinal Tract, Via Natural or Artificial Opening Endoscopic (ICD-10-PCS; 2017-08-03 08:12)
PROC: 30233N1 Transfusion of Nonautologous Red Blood Cells into Peripheral Vein, Percutaneous Approach (ICD-10-PCS; 2017-08-03 08:12)
PROC: 30233N1 Transfusion of Nonautologous Red Blood Cells into Peripheral Vein, Percutaneous Approach (ICD-10-PCS; 2017-08-03 08:12)
DX: K22.6 Gastro-esophageal laceration-hemorrhage syndrome (principal); N17.0 Acute kidney failure with tubular necrosis; K26.4 Chronic or unspecified duodenal ulcer with hemorrhage; I95.9 Hypotension, unspecified; I10 Essential (primary) hypertension; Z85.42 Personal history of malignant neoplasm of other parts of uterus; M81.0 Age-related osteoporosis without current pathological fracture; Z90.710 Acquired absence of both cervix and uterus; Z90.49 Acquired absence of other specified parts of digestive tract; G89.29 Other chronic pain; M54.5 Low back pain; I73.9 Peripheral vascular disease, unspecified; Z87.19 Personal history of other diseases of the digestive system; D64.9 Anemia, unspecified; E78.5 Hyperlipidemia, unspecified; I25.10 Atherosclerotic heart disease of native coronary artery without angina pectoris; E87.6 Hypokalemia; M19.90 Unspecified osteoarthritis, unspecified site; Z87.891 Personal history of nicotine dependence
CPT/HCPCS: 36415; 71045; 71046; 74018; 80048; 80053; 81001; 83690; 85007; 85025; 85027; 85610; 86850; 86900; 86901; 86920; 87040; 87086; 87641; 88305; 88342; 93005; 96361; 96374; 96375; 97116-GP; 97161-GP; 99291; C9113; J0171; J0330; J1100; J1956; J2370; J2405; J2704; J2765; J7030; J7040; J7050; P9016; S0028

== ENCOUNTER → 2018-03-26 | Outpatient (CLI) | payer OTHER ==
[2017-08-09 14:30] VITALS: BP 128/51
[~2018-03-26] MED LIST changes: +FERR325T14 PO; -IOHEXOL 180 MG/ML 10 ML VIAL. ONE; -LORA-794 PO; +LORA-877 PO; +Pantoprazole PO; -methylPREDNISolone ACETATE 40 MG/ML VIAL. ONE; -methylPREDNISolone ACETATE 80 MG/ML VIAL. ONE
--- NOTE | 2018-03-26 17:21 | RAD ---
Limited abdominal ultrasound History: EPIGASTRIC PAIN Findings: Aorta: Limited visualization, does not appear aneurysmal Inferior vena cava: Patent Pancreas: Poorly visualized Liver: Not enlarged Gallbladder: No evidence of cholelithiasis, gallbladder wall thickening or pericholecystic fluid. Bile ducts: No evidence of dilatation Right kidney: 10.5 cm length. No evidence of hydronephrosis. Impression: 1. Limited visualization of midline structures. 2. No definite abnormalities. Electronically signed by: Bernardo Gatica MD (03/26/2018 5:16 PM) [facility]
== END | disposition home or self-care (01) ==
LOC: US 14:02
PROVIDERS: ATTEND Family Medicine
DX: R10.13 Epigastric pain (principal)
CPT/HCPCS: 76705

== ENCOUNTER → 2018-04-27 | Outpatient (CLI) | payer OTHER ==
[2017-08-09 14:30] VITALS: BP 128/51
[~2018-04-27] VITALS: Ht 160 cm; Wt 68.0 kg
[~2018-04-27] MED LIST changes: -LORA-877 PO; +LORA-915 PO; +SINCALIDE 1.36 MCG in IV NORMAL SALINE 50ML 30 ML IV ONE
--- NOTE | 2018-04-27 10:23 | RAD ---
HEPATOBILIARY SCAN WITH EJECTION FRACTION History: Abdominal pain for 6 months Procedure: Serial static images are obtained of the liver and biliary system in the frontal projection following IV administration of 5.5 mCi of Technetium 99m Choletec. After filling of the gallbladder, 1.4 mcg of sincalide were infused over 30 minutes and dynamic imaging continued over this period. The gallbladder ejection fraction was calculated. Findings: There is prompt hepatic clearance of tracer from the blood pool. There is homogeneous distribution throughout the liver. There is normal filling of the gallbladder and normal emptying into the biliary system and small bowel. The gallbladder ejection fraction measures 64% (normal gallbladder EF is 35% or greater). IMPRESSION: 1. The cystic duct and common bile duct are patent. Negative for acute cholecystitis. 2. The gallbladder ejection fraction is normal. Electronically signed by: Eduar Guzman MD (04/27/2018 10:20 AM) [id number]
== END | disposition home or self-care (01) ==
LOC: NM 14:26
PROVIDERS: ATTEND Family Medicine
DX: R10.11 Right upper quadrant pain (principal)
CPT/HCPCS: 78227; A9537; J2805

== ENCOUNTER → 2018-05-05 | Outpatient (CLI) | payer OTHER ==
[2017-08-09 14:30] VITALS: BP 128/51
[~2018-05-05] MED LIST changes: -SINCALIDE 1.36 MCG in IV NORMAL SALINE 50ML 30 ML IV ONE
--- NOTE | 2018-05-05 13:22 | RAD ---
EXAM: Nuclear gastric emptying scan. HISTORY: Pain. COMPARISON: None. TECHNIQUE: Serial static images were obtained over the stomach following oral administration of 2.0 mCi of 99m-Tc sulfur colloid. FINDINGS: The stomach empties into the small bowel without evidence of reflux in the area of the esophagus. The estimated time for half emptying of gastric contents, i.e. 'gastric emptying time' is 64 minutes (normal is 66 +/- 22 minutes). There is 48% retained tracer activity within the stomach at one hour, 14% retained tracer activity within the stomach at 2 hours, 3% retained tracer activity within the stomach at 3 hours on 0% retained tracer activity within the stomach at 4 hours. IMPRESSION: Normal gastric emptying scan. Electronically signed by: Minnie Valencia MD (05/05/2018 1:19 PM) [facility]
== END | disposition home or self-care (01) ==
LOC: NM 08:26
PROVIDERS: ATTEND Family Medicine
DX: K52.9 Noninfective gastroenteritis and colitis, unspecified (principal); K21.9 Gastro-esophageal reflux disease without esophagitis
CPT/HCPCS: 78264; A9541